=== PATIENT | male | born 2000 | race Caucasian/White ===

== ENCOUNTER → 2020-10-06 | Outpatient (CLI) | payer BC ==
[2020-10-07 08:09] LABS: HIV SCREEN 4TH GENERATION WRFX Non Reactive (Non Reactive)
[2020-10-07 09:09] LABS: HBSAG SCREEN Negative (Negative); HEP A AB, IGM Negative (Negative); HEP B CORE AB, IGM Negative (Negative); HEP C VIRUS AB <0.1 (0.0-0.9)
[2020-10-08 00:10] LABS: CHLAMYDIA TRACHOMATIS, NAA Negative (Negative)
== END ==
LOC: LAB SHORT 10:30
PROVIDERS: Physician Assistant
DX: R10.30 Lower abdominal pain, unspecified (principal); N34.1 Nonspecific urethritis
CPT/HCPCS: 80074; 86592; 87389; 87491; 87591